=== PATIENT | male | born 1930 | race Caucasian/White ===

== ENCOUNTER 2016-09-10 18:05 | Inpatient (IN) | payer MEDICARE, OTHER ==
[~2016-09-10] VITALS: Ht 177.8 cm; Wt 74.0 kg
--- NOTE | ~2016-09-10 | CST ---
Cardiac Perfusion Imaging Demographics Patient Name MELCHOR Singh Gender Male Patient Number [id number] Race Visit Number [id number] Ethnicity Corporate ID Room Number 306 Accession Number [id number] Height 70 inches Date of 1930 Weight 153 pounds Age 85 year(s) BSA 1.86 m Referring Physician Amarilis Murphy MD BMI 21.95 kg/m Interpreting Physician [facility] Cande Hui Date of study 09/12/2016 King Kevin Hernadez MD Supervising MD/MLP King Kevin Hernadez MD NM Technologist Onur Berry Ordering Physician King Kevin Hernadez MD Stress Aly Au registered diet technician Stress ECG Reading [facility] Nurse Andrea Herrera Physician King Kevin Amaya The procedure was explained in detail to the patient. Risks, complications and alternative treatments were reviewed. Written consent was obtained. Medications Reviewed with Patient prior to Procedure. Procedure Procedure Type: Nuclear Stress Test:Pharmacological, Cardiac Study SF Procedure Start time: 09/12/2016 07:30 Indications: Chest discomfort, History of CAD and Hypertension. Risk Factors The patient risk factors include:prior PCI;hypercholesterolemia, hypertension and dyslipidemia. Conclusions Summary Perfusion Images: The overall quality of the study is good. Left ventricular cavity is noted to be normal on the stress and rest studies. There is no evidence of abnormal lung activity. The right ventricle is not visualized and cannot be assessed. Stress SPECT images and Rest SPECT images demonstrate homogenous tracer distribution throughout the myocardium except for a decrease in uptake in the area involving the inferior wall consistent with diaphragmatic attenuation. Gated SPECT imaging reveals normal myocardial thickening and wall motion. The left ventricular ejection fraction was calculated to be 56%. Impression ECG portion of stress test is clinically negative for ischemia by diagnostic criteria. Myocardial perfusion imaging is normal. The inferior wall matched defect is consistent with diaphragm attenuation. Overall left ventricular systolic function was normal without regional wall motion abnormalities. There are no previous studies for comparison. . Stress Protocols Resting ECG Normal sinus rhythm. Resting HR:60 bpm Resting BP:132/58 mmHg Stress Protocol:Pharmacologic Predicted HR: 135 bpm Test duration: 06:00 min Reason for termination:Infusion complete ECG Findings Normal sinus rhythm. Symptoms Pt had dyspnea and chest pressure with lexiscan injection. Symptoms resolved after 3 minutes. Complications Procedure complication: None. Stress Interpretation Appropriate hemodynamic response to Lexiscan. No significant ST-T wave changes with Lexiscan. ECG portion is negative for ischemia by diagnostic criteria. Imaging Results Summed scores - Summed stress score: 0 - Summed rest score: 0 - Summed difference score: 0 Stress ejection Ejection fraction:56 % EDV :135 ml ESV :59 ml Stroke volume :76 ml LV mass :147 gr Imaging Protocols Rest Stress Isotope:Tc99m Myoview IV Isotope: Tc99m Myoview IV Isotope dose:10.5 mCi Isotope dose:31 mCi Date:09/12/2016 06:30 Date:09/12/2016 07:30 Technique: SPECT Technique: Gated Supine SPECT Supine IV remains in place after procedure. Scan Time:30 minutes post injection Scan Time:45-60 minutes post injection Procedure Medications - Regadenoson (Lexiscan) 0.4 mg IV over 10-15 sec. I.V. 0.4 mg. Medications administered per verbal order and read back to physician prior to administration. Medical History Admission Data Admission date: 09/10/2016 Admission Time: 19:02 Hospital Status: Inpatient. Signatures
--- NOTE | ~2016-09-10 | ECH ---
Transthoracic Echocardiography Report (TTE) Demographics Patient Name WILBERT ROCHE Date of Study 09/11/2016 Patient Number [id number] Visit Number [id number] Date of 1930 Room Number 314 Accession Number [id number] Gender Male Age 85 year(s) Referring Amarilis Murphy MD Orthodontic Assistant Teena Acosta [facility] Physician Physician Interpreting Cate Roy MD Cake Press Operator Helper Physician Supervising Ordering Physician Lu Saravia MD/CYNTHIA Molina MD Nurse Stress Care Transition Manager Conclusions Summary Technically difficult exam. The estimated left ventricular ejection fraction is 55%. The left atrium is mildly dilated by LA volume index measurement. There is trivial aortic regurgitation by color Doppler. Trivial tricuspid regurgitation by color Doppler. There is mild pulmonary hypertension. The pulmonary pressure (RVSP) is 41 mmHg. Procedure Type of Study TTE procedure:Echo Complete SF. Procedure Date Date: 09/11/2016 Start: 12:29 PM Technical Quality: Fair due to poor acoustical window. Indications:Pulmonary edema, Shortness of breath, Hypertension and Elevated Troponin. Additional Indications:ESRD Appropriate Use Criteria: 9 Height: 70 inches Weight: 153 pounds BSA: 1.86 m Rhythm: Within normal limits HR: 68 bpm BP: 138/43 mmHg M-Mode/2D Measurements LV Diastolic Dimension: 5.84 cm LV Systolic Dimension: 4.62 cm LV Septum Diastolic: 0.85 cm LV PW Diastolic: 0.92 cm AO Root Dimension: 2.99 cm Cardiac Output: 5.72 l/min LA Dimension: 4.23 cm Cardiac Index: 3.08 l/min*m RV Diastolic Dimension: 3.03 cm LA volume index: 36 ml/m LVOT: 1.94 cm LVOT VTI: 28.46 cm RV Base: 3.3 cm LV Stroke volume: 84.08 ml RV Mid: 2.6 cm LV Stroke volume index: 45.2 ml/m TAPSE: 1.8 cm TDI-S': 14 cm/s Doppler Measurements AV Peak Velocity: 1.6 m/s MV Peak E-Wave: 1.03 m/s AV Peak Gradient: 10.24 mmHg MV Peak A-Wave: 0.87 m/s AV Mean Gradient: 6.26 mmHg MV E/A Ratio: 1.18 LVOT Peak Velocity: 1.29 m/s MV P1/2t: 64.9 msec AV Area (Continuity):2.54 cm MV Deceleration Time: 227.9 msec TR Velocity:3.06 m/s MV Area (PHT): 3.39 cm TR Gradient:37.55 mmHg PV Peak Velocity: 1 m/s Estimated RAP:3 mmHg PV Peak Gradient: 3.97 mmHg Estimated RVSP: 41 mmHg Estimated PASP: 40.55 mmHg E' Septal Velocity: 0.05 m/s A' Septal Velocity: 0.07 m/s E' Lateral Velocity: 0.1 m/s A' Lateral Velocity: 0.06 m/s RA Area: 14.64 cm Findings Left Ventricle Normal left ventricle size and function. Diastolic assessment reveals normal relaxation. Right Ventricle Normal right ventricle structure and function. Left Atrium The left atrium is mildly dilated by LA volume index measurement. Right Atrium Normal right atrial size. Mitral Valve Mild mitral annular calcification. Mild mitral regurgitation by color Doppler. Aortic Valve The aortic valve is mildly sclerotic. There is trivial aortic regurgitation by color Doppler. Tricuspid Valve Normal tricuspid valve structure and function. Trivial tricuspid regurgitation by color Doppler. There is mild pulmonary hypertension. The pulmonary pressure (RVSP) is 41 mmHg. Pulmonic Valve The pulmonic valve is not well visualized. Pericardial Effusion No evidence of pericardial effusion. Miscellaneous Visualized portions of the aortic root and ascending aorta appear normal in size. Pleural Effusion No evidence of pleural effusion. Contractility Score LV regional wall motion:(0-Non visualized 1-Normal 2-Hypokinesis 3-Akinesis 4-Dyskinesis 5-Aneurysm) Signature
[~2016-09-10 18:05] MED LIST: ALPHAGAN P5 ML OU; ASA CHILDREN'S81 MG PO; LUMIGAN5 ML OS; NORVASC DPS10 MG PO; OMEGA-3 DPS1000 MG PO; PRESERVISION A1 EAC1 PO; PRILOSEC DPS20 MG PO; RENA-VITE TABL0.8 MG PO; TENORMIN-DPS25 MG PO; ZANTAC DPS150 MG PO
--- NOTE | 2016-09-12 00:03 | ER ---
ADMIT: 09/10/2016 RM/LOC: 433 [facility] MR#: [id number] 26[address] [facility] [address] [place], [place] [address] WILBERT ROCHE [address] [place] [address] Emergency Room Report SEX: M AGE: 85 : 1930 DATE: 09/10/2016 HISTORY OF PRESENT ILLNESS: An 85-year-old gentleman comes to the Emergency Department with complaints of abdominal pain, shortness of breath, and weakness. He was seen in the Emergency Department yesterday, had an extensive cardiac workup done, results of which were negative, subsequently discharged home, returns today saying he is getting no better and in fact worse. PAST MEDICAL HISTORY: Significant dialysis dependent renal failure, hypertension, GERD, and hyperlipidemia. He has a fistula in the left arm. PHYSICAL EXAMINATION: GENERAL: An 85 frail-appearing gentleman, who is pale. LUNGS: Rhonchi, wheezing on the right, greater than the left. CARDIOVASCULAR: Regular rate and rhythm. No murmur, rubs, or gallops. ABDOMEN: Soft, nontender. Positive bowel sounds. EXTREMITIES: No edema. HOME CARE MANAGER: No focal findings. LABS AND STUDIES: Reviewed from yesterday. Chest x-ray was repeated today, which showed congestive heart failure. The patient is being admitted for volume overload. Dr. Leigh was also notified of the admission. Davin Stubbs MD/ kassidy JOB #: [id number] CC: Jeffrey Olmos MD, Attending Physician Jeffrey Olmos MD, Family Physician
--- NOTE | 2016-09-14 12:45 | CO ---
ADMIT: 09/10/2016 RM/LOC: 306 [facility] MR#: [id number] 26[address] [facility] [address] [place], [place] [address] WILBERT ROCHE [address] [place] [address] Consultation SEX: M AGE: 85 : 1930 DATE OF CONSULTATION: 09/11/2016 ATTENDING PHYSICIAN: Jeffrey Olmos CONSULTING PHYSICIAN: Rani Leigh MD REASON FOR CONSULTATION: End-stage renal disease, on hemodialysis, and pulmonary edema. HISTORY OF PRESENT ILLNESS: The patient is an 85-year-old gentleman, who is well known to me. He has had a rough weekend. He had his last dialysis this past Sunday. On Sunday, he started having sudden onset shortness of breath along with orthopnea. He denies any dietary sodium indiscretion or increased fluid intake. He generally does very well with interdialytic fluid gains as well as on dialysis. Recently, we have had to increase his dry weight by about a kilo because of hypotension and near syncope on dialysis. He proceeded to the ER for evaluation on Sunday and has cardiopulmonary workup was negative and he was discharged home. However, he presented to the hospital again yesterday with symptoms that for now worse. He was admitted. He was initially admitted to the floor and required oxygen 6 L by nasal cannula. Subsequently, his oxygen requirements increased overnight and to be transferred to the ICU. He is currently on dialysis and is tolerating that well. He reports that his symptoms are already better. He denies any chest pain, cough, fevers, chills, or rigors although overnight his temperature was 101.5 Fahrenheit. He does not make much urine. Denies any other complaints. REVIEW OF SYSTEMS: Complete review of systems negative in detail except as mentioned in history of present illness above. PAST MEDICAL HISTORY: 1. End-stage renal disease, on hemodialysis. Dialysis schedule is Sunday, Sunday, and Sunday. 2. Hypertension. 3. Gastroesophageal reflux disease. 4. Gout. 5. Hyperlipidemia. 6. Coronary artery disease, status post PCI. 7. Tonsillectomy. 8. AV fistula. MEDICATIONS: Reviewed in the chart. ALLERGIES: STATINS AND ALLOPURINOL. FAMILY HISTORY: His brother has chronic kidney disease. His father had coronary artery disease as well as diabetes. ADMIT: 09/10/2016 RM/LOC: 306 [facility] MR#: [id number] [address] [address] [place] [address] Consultation SEX: M AGE: 85 : 1930 SOCIAL HISTORY: Lives here in town, and he lives with his . He is a . Lifelong nonsmoker. No ongoing alcohol or recreational drug use. PHYSICAL EXAMINATION: VITAL SIGNS: Temperature 98.5 Fahrenheit, pulse 68, blood pressure 138/43. GENERAL: He is comfortable in bed. HEENT: Head is nontraumatic and normocephalic. Extraocular movements are intact. No conjunctival pallor. Dry mucosa. NECK: Supple. No JVD. CHEST: Clear to auscultation CVS: Regular rhythm. S1, S2 heard. No rubs, murmurs, or gallops. ABDOMEN: Soft and nontender. EXTREMITIES: No edema. SKIN: No rash or nodules. NEUROLOGIC: Alert, awake, and oriented x3. He is able to move all his extremities. PSYCHIATRIC: Affect and memory within normal limits. MUSCULOSKELETAL: Major joints within normal. Range of motion within normal limits. AV fistula with good thrill and bruit. LABORATORY DATA: Reviewed. BMP with sodium 134, potassium 5.1, CO2 of 25, creatinine 9.3. Hemoglobin is 10.6, calcium 10.9. ASSESSMENT AND PLAN: 1. End-stage renal disease, on hemodialysis. 2. Pulmonary edema. He has been a very compliant patient as far as hemodialysis is concerned. This is a dramatic presentation. He has done very well generally with his fluids and dietary sodium restriction. Dyspnea was within 24-36 hours of his previous dialysis. I wonder if this presentation is cardiac in origin. I will check an echocardiogram to re-evaluate his cardiac status. This echocardiogram will be post dialysis, and so I expected to be a little better than what it would have been upon presentation. He may also need a Cardiology evaluation. I also discussed with him about increasing his time on dialysis in order to attain more ultrafiltration. He will think about this. He had a fever overnight, and I will defer antibiotics to the primary team. Thank you for this consultation. Please do not hesitate to contact with any questions. Rani Leigh MD/ kassidy JOB #: [id number] CC: Jeffrey Olmos, Attending Physician Jeffrey Olmos, Family Physician
[2016-09-14] MEDS ORDERED: [UNRECOGNIZED DRUG - OTHER] (17:31)
[2016-09-14] MEDS ORDERED: NORVASC DPS10 MG PO (17:31)
[2016-09-14] MEDS ORDERED: TENORMIN-DPS25 MG PO (17:33)
[2016-09-14] MEDS ORDERED: OMEGA-3 DPS1000 MG PO (17:33)
[2016-09-14] MEDS ORDERED: LUMIGAN 0.01%2.5 ML OU (17:33)
[2016-09-14] MEDS ORDERED: COMBIGAN5 ML OU (17:34)
[2016-09-14] MEDS ORDERED: PRESERVISION A1 EACH PO (17:34)
[2016-09-14] MEDS ORDERED: ASPIRIN EC81 MG PO (17:35)
[2016-09-14] MEDS ORDERED: ZANTAC DPS150 MG PO (17:35)
[2016-09-14] MEDS ORDERED: PRILOSEC DPS20 MG PO (17:35)
[2016-09-14] MEDS ORDERED: DUREZOL5 ML OS (17:36)
[2016-09-14] MEDS ORDERED: TYLENOL DPS325 MG PO (17:37)
[2016-09-14] MEDS ORDERED: TRUSOPT 2% DPS10 ML OS (17:37)
[2016-09-14] MEDS ORDERED: ILEVRO1.7 ML OS (17:37)
--- NOTE | 2016-09-26 08:26 | HP ---
ADMIT: 09/10/2016 RM/LOC: 433 [facility] MR#: [id number] 26[address] [facility] [address] [place], [place] [address] WILBERT ROCHE [address] [place] [address] History and Physical SEX: M AGE: 85 : 1930 DATE OF SERVICE: CHIEF COMPLAINT: Shortness of breath and weakness. HISTORY OF PRESENT ILLNESS: Wilbert is a very pleasant 85-year-old male, normally follows with Dr. Olmos in our clinic, presents to emergency department today with the above complaints. The patient has a history of end- stage renal disease, on hemodialysis. Follows with Dr. Leigh. The patient was actually seen in our emergency department yesterday with similar symptoms, not requiring oxygen at that time. I discussed with Dr. Leigh. Plan was to dialyze on Sunday. However, over the last 24 hours, the patient had worsening increased weakness and shortness of breath, therefore, in emergency department today. Chest x-ray shows edema. The patient thought to be in volume overload, requiring 3 L of oxygen now. The patient had similar-like episode, admitted 05/01 for similar symptoms. I dialyzed and was feeling much better. Discussed patient's care with Dr. Leigh. It sounds like they actually have increased his dry weight just a little as he was getting slightly orthostatic with dialysis. The patient otherwise at this time voices no complaints. No significant chest pains. No nausea or vomiting. No fevers or chills. No significant cough. PAST MEDICAL HISTORY: Remarkable for: 1. End-stage renal disease, hemodialysis. Follows with Dr. Leigh. 2. Hypertension. 3. Gastroesophageal reflux. 4. Gout. 5. Hyperlipidemia. PAST SURGICAL HISTORY: Tonsillectomy, AV fistula, hammertoe surgery. CURRENT MEDICATIONS: Per hospital record. ALLERGIES: STATINS AND ALLOPURINOL. FAMILY HISTORY: Father had [place] and diabetes. Mother with breast cancer. Both . SOCIAL HISTORY: No smoking, alcohol, or drug use. Lives with his , Frida. 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 They live in [place]. Father had a weed farm growing up, so no smoking was allowed. REVIEW OF SYSTEMS: A 10-point review of systems obtained per HPI, otherwise negative. PHYSICAL EXAMINATION: VITAL SIGNS: Blood pressure 154/66, pulse 74, respirations 16, temperature 99.3, 94% on 3 L. GENERAL: Alert and oriented x3. Does not appear in acute distress. No ADMIT: 09/10/2016 RM/LOC: 433 [facility] MR#: [id number] [address] [place] [id number] [place] [address] History and Physical SEX: M AGE: 85 : 1930 increased work of breathing. HEENT: Pupils equal, round, reactive. Extraocular muscles intact, throat clear. Trachea midline. HEART: Regular rate and rhythm. No murmurs. LUNGS: Decreased breath sounds bilaterally. Few scattered rhonchi bilaterally. ABDOMEN: Soft, nontender, and nondistended. No organomegaly. EXTREMITIES: With trace swelling. No significant pitting edema. NEUROLOGICAL: Cranial nerves II through XII grossly intact. No focal deficits. LABORATORY DATA: Labs from yesterday 09/09; hemoglobin 10.6, potassium 4.2, creatinine 6.3, magnesium 2.2. CK, CK-MB and troponin were all normal. Chest x-ray done in the ER today shows congestive heart failure. ASSESSMENT: An 85-year-old male with: 1. Volume overload. 2. Hypoxia without severe respiratory failure. 3. End-stage renal disease, hemodialysis. 4. Hypertension. 5. Gastroesophageal reflux disease. 6. Gout. 7. Hyperlipidemia. PLAN: We will admit the patient for respiratory support. Cover him with one dose of Cefdinir. Repeat chest x-ray, procalcitonin, cardiac enzymes in the morning. Likely similar to last admission with volume overload. Check a respiratory viral panel. Discussed with Dr. Leigh. Planning on dialysis first thing in the morning. The patient did have an echocardiogram during the last hospitalization in April showing an EF of 50% to 55%. Moderately dilated left atrial volume and mild dilation of the left ventricle. RVSP was 41. Given the similarities in these two admissions, we will hold on repeat echocardiogram at this time. If no improvement, Dialysis may have to get Cardiology involved and repeat echocardiogram. Greater than 25 minutes was spent in the patient's overall care. Dr. Olmos will resume care tomorrow morning. The patient and were in agreement with the plan. Ovidio Aragon MD/ kassidy JOB #: [id number] CC: Jeffrey Olmos, Attending Physician Jeffrey Olmos, Family Physician
--- NOTE | 2016-11-27 10:20 | DS ---
ADMIT: 09/10/2016 RM/LOC: 401 [facility] MR#: [id number] 2620 [facility] [address] [place], [place] [address] WILBERT ROCHE [address] [place] [address] General Discharge Summary SEX: M AGE: 85 : 1930 ADMISSION DATE: 09/10/2016 DISCHARGE DATE: 09/13/2016 FINAL DIAGNOSIS: 1. Acute pulmonary edema secondary to volume overload. 2. End-stage renal disease. 3. Acute hypoxic respiratory failure. 4. Hypertension. 5. Gout. 6. Gastric reflux disease. REASON FOR ADMISSION: This is a very pleasant, 85-year-old, white male, on dialysis, who had been having his dry weight adjusted up a little bit because of fatigue and hypotension. He presented to the emergency room with increasing shortness of breath, weakness and volume overload. Therefore, he was admitted for further workup and stabilization. HOSPITAL COURSE: He was admitted on 09/10/2016 to telemetry. Nephrology was consulted. We did place him on BiPAP to maintain his O2 saturations as well as DuoNeb treatments and ruled out for myocardial infarction with cardiac enzymes. He did have a mild bump in his troponin, so we did start him on IV heparin. He had increasing shortness of breath and work of breathing early in the a.m. on 09/11/2016, so he was transferred to the unit, was given a dose of IV Lasix. When I saw him, he was complaining of a productive cough with a pink, frothy sputum. We did confirm his DNR/DNI status. He was placed on Zosyn to cover for any infectious cause, continued on BiPAP, and then later changed to high flow. He underwent hemodialysis. Lu ordered a Lexiscan stress test, which was normal, showed no obvious areas of decreased perfusion. On 09/12/2016, he was doing better, breathing much better, no chest pain, felt weak. We did transfer him to telemetry at that point. Physical Therapy was consulted. We discontinued his IV heparin after his stress test was unremarkable, and then on 09/13/2016, he was off his O2, feeling better and felt stable for discharge after dialysis. DISCHARGE INSTRUCTIONS: 1. Aspirin 81 mg daily. 2. Norvasc 10 mg daily. 3. Ranitidine 20 mg daily. 4. Omeprazole 40 mg daily. 5. Tenormin 25 mg daily. ADMIT: 09/10/2016 RM/LOC: 401 [facility] MR#: [id number] [address] [address] [place] [address] General Discharge Summary SEX: M AGE: 85 : 1930 6. Anna-Aba. 7. PreserVision one tab daily. 8. Tylenol 325 mg two Q 4 hours p.r.n. 9. Fish oil 1000 mg t.i.d. 10.Lumigan 0.005% OU at bedtime. 11.Combigan 0.2% b.i.d. 12.Durezol 4 drops left eye daily. 13.Dorzolamide 2 drops left eye daily. 14.Ilevro 1 drop left eye daily. Low-sodium renal diet and follow up with Dr. Olmos in 1 week, sooner if needed. Discharge of the patient took 40 minutes. Jeffrey Olmos MD/ tanika JOB #: [id number] CC: Jeffrey Olmos MD, Attending Physician Jeffrey Olmos MD, Family Physician
== END 2016-09-13 13:15 | disposition home or self-care (01) | DRG 189 ==
LOC: ER 18:05 → 3ICU 19:02 → 4PCU 19:02 → 3ICU 09-11 04:13 → 4PCU 09-12 21:00
PROVIDERS: ADMIT Family Medicine
PROC: 5A1D60Z (ICD-10-PCS; principal; 2016-09-11)
DX: J81.0 Acute pulmonary edema (principal); I13.2 Hypertensive heart and chronic kidney disease with heart failure and with stage 5 chronic kidney disease, or end stage renal disease; J96.01 Acute respiratory failure with hypoxia; N18.6 End stage renal disease; I24.8 Other forms of acute ischemic heart disease; E87.70 Fluid overload, unspecified; I50.9 Heart failure, unspecified; M10.9 Gout, unspecified; K21.9 Gastro-esophageal reflux disease without esophagitis; E78.5 Hyperlipidemia, unspecified; R09.02 Hypoxemia; Z99.2 Dependence on renal dialysis; Z82.49 Family history of ischemic heart disease and other diseases of the circulatory system; Z66 Do not resuscitate